=== PATIENT | male | born 1985 | race Caucasian/White ===

== ENCOUNTER 2020-03-01 06:34 | Emergency (ER) | payer OTHER ==
[~2020-03-01] VITALS: Ht 170.2 cm; Wt 72.6 kg
[2020-03-01 07:25] LABS: ABSOLUTE EOSINOPHILS 0.1 thou/uL (0.0-0.7); ABSOLUTE LYMPHOCYTES 1.5 thou/uL (0.8-5.3); ABSOLUTE MONOCYTES 0.7 thou/uL (0.0-1.2); ABSOLUTE NEUTROPHILS 11.6 thou/uL (1.6-8.1); BASOPHILS 0.3 %; EOSINOPHILS 0.6 %; HEMATOCRIT 42.2 % (42.0-52.0); HEMOGLOBIN 14.5 gm/dL (14.0-18.0); LYMPHOCYTES 10.8 %; MCH 29.5 pg (26.0-34.0); MCHC 34.3 g/dL (28.0-37.0); MCV 86.1 fL (80.0-100.0); MONOCYTES 5.1 %; NUCLEATED RBCS 0 /100WBC; PLATELET COUNT* 268 thou/uL (150-400); POLYS 83.2 %; RDW-CV 13.2 % (10.5-14.5)
[2020-03-01 07:35] LABS: CALCIUM 8.8 mg/dL (8.5-10.1); CREATININE 1.3 mg/dL (0.6-1.3)
[2020-03-01 07:36] LABS: POTASSIUM 2.9 mmol/L (3.5-5.1)
[2020-03-01 07:40] LABS: ALBUMIN 4.4 g/dL (3.4-5.0); TOTAL BILIRUBIN 0.5 mg/dL (<0.1-1.0)
[2020-03-01 08:01] LABS: URINE BILIRUBIN NEGATIVE (Negative); URINE BLOOD TRACE (Negative); URINE CLARITY CLEAR; URINE COLOR YELLOW; URINE GLUCOSE-RANDOM NEGATIVE (Negative); URINE KETONES 1+ (Negative); URINE LEUKOCYTES-REFLEX NEGATIVE (Negative); URINE NITRITE-REFLEX NEGATIVE (Negative); URINE PROTEIN NEGATIVE (Negative); URINE SPECIFIC GRAVITY 1.025 (1.005-1.030); URINE UROBILINOGEN 0.2 E.U./dl (0.2-1.0)
[2020-03-01] MEDS ORDERED: IBUPROFEN 800800 M1 PO (08:15)
[2020-03-01] MEDS ORDERED: NORCO 5-325 TA1 EAC2 PO (08:15)
[2020-03-01] MEDS ORDERED: ZOFRAN ODT4 MG DISSOLVE (08:15)
[2020-03-01] MEDS ORDERED: FLOMAX0.4 MG PO (08:15)
[2020-03-01 08:40] VITALS: BP 116/65
== END 2020-03-01 08:40 | disposition home or self-care (01) ==
LOC: M.ERS 06:34
PROVIDERS: Personal Emergency Response Attendant
DX: N20.0 Calculus of kidney (principal); Z88.1 Allergy status to other antibiotic agents